=== PATIENT | male | born 1965 | race Two or more races ===

== ENCOUNTER 2020-07-27 04:39 | Emergency (ER) | payer OTHER ==
[~2020-07-27] VITALS: Ht 182.9 cm; Wt 104.5 kg
--- NOTE | 2020-07-27 05:12 | PHYS DOC ---
General Adult EDM: Chief Complaint: SHOULDER INJURY HPI: HPI: Patient is a 54-year-old male who presents with right shoulder pain. He states the pain began 1 month ago and is in his posterior right shoulder with no radiation. States the pain has been gradually worsening. He describes the pain as sharp. He states the pain is worse with certain positions and with movement. He denies any trauma or inciting incident. He denies any previous shoulder injuries, dislocations or surgeries. He denies any associated symptoms. Review of Systems: Review of Systems: Constitutional: Denies fever or chills Eyes: Denies redness or eye pain HENT: Denies nasal congestion or sore throat Respiratory: Denies cough or shortness of breath Cardiovascular: Denies chest pain or palpitations GI: Denies abdominal pain, nausea, or vomiting : Denies dysuria or hematuria Musculoskeletal: Admits right shoulder pain, denies back pain or joint pain Integument: Denies rash or skin lesions Neurologic: Denies headache, focal weakness or sensory changes Complete systems were reviewed and found to be within normal limits, except as documented in this note. Allergies: Allergies: Allergies Coded Allergies Type Severity Reaction Last Updated Verified No Known Drug Allergies 07/27/20 No Physical Exam: PE: Constitutional: Well developed, well nourished, no acute distress, non-toxic appearance HENT: Normocephalic, atraumatic Eyes: PERRL, EOMI, conjunctiva normal, no discharge Neck: Normal range of motion, no tenderness, supple Lungs & Thorax: No respiratory distress, equal chest rise and fall Abdomen: Soft, no tenderness Skin: Warm, dry, no erythema, no rash Back: No tenderness, no CVA tenderness Extremities: Tenderness to palpation over right trapezius muscle, ROM intact, no edema, pain with Donovan maneuver, drop can test negative, no tenderness over biceps tendon Neurologic: Alert and oriented X 3, normal motor function, normal sensory function, no focal deficits noted Psychologic: Affect normal, judgment normal EKG: EKG: [] Radiology/Procedures: Radiology/Procedures: [] Course & Med Decision Making: Course & Med Decision Making Patient is a 54-year-old male presenting with right shoulder pain. Plan to obtain x-ray, treat symptomatically and follow-up with Ortho. Pertinent Labs and Imaging studies reviewed. (See chart for details) Patient stable for discharge with outpatient follow-up with PCP. Discussed findings and plan with patient, who acknowledges understanding and agreement. Mickey Disclaimer: Mickey Disclaimer: This electronic medical record was generated, in whole or in part, using a voice recognition dictation system. Departure Departure Impression: Primary Impression: Shoulder pain, acute Qualified Codes: M25.511 - Pain in right shoulder Disposition: 01 DC HOME SELF CARE/HOMELESS Condition: STABLE Referrals: JASMINA GONZALEZ MD Patient Instructions: Shoulder Pain, [id number] Additional Instructions: Take [id number] ibuprofen and/or Tylenol for pain or discomfort. Scripts Orphenadrine Citrate (ORPHENADRINE CITRATE) 100 Mg Tablet.er 100 MG PO BID PRN for MUSCLE PAIN, #14 TAB Prov: JESUS SRINIVASAN DO 07/27/20 JESUS SRINIVASAN DO Jul 27, 2020 05:12
[2020-07-27] MEDS ORDERED: ORPHENADRINE CITRATE 60 MG/2 ML VIAL. IM ONE (05:15)
--- NOTE | 2020-07-27 05:39 | RAD ---
Study: XR SHOULDER_RIGHT 2+ VIEWS Indication: Shoulder pain. Comparison: None. Findings: No acute fracture or traumatic malalignment. Favored degenerative osteophytic ridging along the gleno id. Minimal acromioclavicular joint arthrosis. The acromiohumeral interval measures within normal [place] its. Grossly intact visualized ribs. Humeral head bone island. Impression: 1. No acute fracture or traumatic malalignment. 2. Degenerative osteophytic ridging along the glenoid rim. Minimal AC joint arthrosis. Electronically signed by: RICA ALVARENGA MD (07/27/2020 5:37 AM) [facility]
[2020-07-27 05:40] VITALS: BP 153/96
[2020-07-27] MEDS ORDERED: ORPH100T PO (05:41)
== END 2020-07-27 05:50 | disposition home or self-care (01) ==
LOC: ER 04:39
DX: M25.511 Pain in right shoulder (principal)
CPT/HCPCS: 73030; 96372; 99283; J2360